=== PATIENT | female | born 1975 | race Caucasian/White ===

== ENCOUNTER 2017-03-18 07:44 | Inpatient (IN) | payer OTHER ==
[2017-03-15 13:09] LABS: Urine Bilirubin Negative (Negative); Urine Blood Negative /uL (Negative); Urine Color Yellow (Yellow); Urine Glucose Normal (Normal); Urine Ketone Negative (Negative); Urine Nitrite Negative (Negative); Urine Urobilinogen Normal (Negative)
[2017-03-15 13:11] LABS: Basophils # (auto) 0 uL; Basophils % (auto) 0.7 % (0.0-2.0); Eosinophils # (auto) 0.1 uL; Eosinophils % (auto) 1.9 % (0.0-7.0); Hematocrit 44.6 % (36.0-46.0); Hemoglobin 14.3 g/dL (12.2-16.2); Lymphocytes # (auto) 2.2 uL; Lymphocytes % (auto) 32.4 % (10.0-50.0); Mean Corpuscular Hemoglobin 29.6 pg (28.0-32.0); Mean Corpuscular Hgb Conc. 32.1 g/dL (32.0-36.0); Mean Corpuscular Volume 92.2 fL (80.0-100.0); Mean Platelet Volume 8.3 fL (6.9-10.8); Monocytes # (auto) 0.3 uL; Nucleated Red Blood Cells % 0.2 %; Platelet Count (auto) 382 10^3/uL (140-450); Red Cell Distribution Width 14.9 % (11.8-14.3); White Blood Cell 6.7 10^3/uL (4.4-10.8)
[2017-03-15 13:23] LABS: INR 0.93 (0.9-1.15); Partial Thromboplastin Time 25.5 sec (22.64-33.71); Prothrombin Time 10.1 sec (9.37-12.3)
[2017-03-15 13:27] LABS: Albumin 3.5 g/dL (3.4-5.0); BUN/Creatinine Ratio 10.3; Bilirubin, Total 0.3 mg/dL (0.2-1.0); Calcium 8.6 mg/dL (8.5-10.1); Potassium 4.2 mmol/L (3.5-5.1); Total Protein 8.1 g/dL (6.4-8.2)
[~2017-03-18] VITALS: Ht 163.8 cm; Wt 97.7 kg
[2017-03-18] MEDS ORDERED: ceFAZolin 1GM/50ML D5W 100 ML IV ONE (07:52)
[2017-03-18] MEDS ORDERED: ROCURONIUM 10MG/ML 10ML VIAL IV ONE (12:00)
[2017-03-18] MEDS ORDERED: fentaNYL CITRATE 100 MCG/2 ML VL ONE (12:10)
[2017-03-18] MEDS ORDERED: MIDAZOLAM HCL 1MG/1ML-2 ML VIAL ONE ×2 (12:10→12:36)
[2017-03-18] MEDS ORDERED: PROPOFOL 10 MG/ML 20 ML IV ONE (12:20)
[2017-03-18] MEDS ORDERED: HYDROmorphone HCL 2 MG/ML VL IV PRN ×2 (14:15→14:45)
[2017-03-18] MEDS ORDERED: KETOROLAC TROMETH 30 MG/ML 1ML VIAL IV PRN (14:15)
[2017-03-18] MEDS ORDERED: HYDROmorphone HCL 2 MG/ML VL ONE (14:44)
[2017-03-18] MEDS ORDERED: ePHEDrine SULFATE 50 MG/ML AMP IV PRN (14:45)
[2017-03-18] MEDS ORDERED: ONDANSETRON HCL 4 MG/2 ML VIAL IV ONE (14:45)
[2017-03-18] MEDS ORDERED: hydrALAZINE HCL 20 MG/ML VL IV PRN (14:45)
[2017-03-18] MEDS: HYDROmorphone HCL 2 MG/ML VL IV PRN ×5 (14:50→20:31)
[2017-03-18] MEDS ORDERED: KETOROLAC TROMETH 30 MG/ML 1ML VIAL ONE (14:54)
[2017-03-18 17:00] VITALS: BP 144/92
[2017-03-18 17:15] VITALS: BP 144/92
[2017-03-18] MEDS ORDERED: TRAZ50TA2 PO (17:32)
[2017-03-18] MEDS ORDERED: SERT25TA84 PO (17:32)
[2017-03-18] MEDS: KETOROLAC TROMETH 30 MG/ML 1ML VIAL IV SCH (18:00)
[2017-03-18] MEDS: ceFAZolin 1GM/50ML D5W 50 ML IV SCH ×2 (18:21→21:45)
[2017-03-18 20:00] VITALS: BP 130/78
[2017-03-18] MEDS: LACTATED RINGER'S 1,000 ML IV SCH ×2 (20:43→21:31)
[2017-03-19] MEDS: HYDROmorphone HCL 2 MG/ML VL IV PRN ×4 (00:43→23:13)
[2017-03-19] MEDS: ONDANSETRON HCL 4 MG/2 ML VIAL IV PRN (00:43)
[2017-03-19] MEDS: LACTATED RINGER'S 1,000 ML IV SCH (03:23)
[2017-03-19 05:00] VITALS: BP 148/90
[2017-03-19] MEDS: ceFAZolin 1GM/50ML D5W 50 ML IV SCH (06:12)
[2017-03-19] MEDS: KETOROLAC TROMETH 30 MG/ML 1ML VIAL IV SCH (06:13)
[2017-03-19 06:22] LABS: Basophils # (auto) 0 uL; Basophils % (auto) 0.2 % (0.0-2.0); Eosinophils # (auto) 0 uL; Hematocrit 37.5 % (36.0-46.0); Hemoglobin 12.4 g/dL (12.2-16.2); Lymphocytes # (auto) 1.8 uL; Lymphocytes % (auto) 12.3 % (10.0-50.0); Mean Corpuscular Hemoglobin 30.1 pg (28.0-32.0); Mean Corpuscular Hgb Conc. 33.2 g/dL (32.0-36.0); Mean Corpuscular Volume 90.6 fL (80.0-100.0); Monocytes # (auto) 0.8 uL; Monocytes % (auto) 5.5 % (0.0-12.0); Neutrophils # (auto) 12.1 uL; Platelet Count (auto) 326 10^3/uL (140-450); Red Cell Distribution Width 14.4 % (11.8-14.3); White Blood Cell 14.8 10^3/uL (4.4-10.8)
[2017-03-19 07:33] LABS: BUN/Creatinine Ratio 9.1; Calcium 8.5 mg/dL (8.5-10.1); Potassium 4.4 mmol/L (3.5-5.1)
[2017-03-19 07:36] LABS: Bilirubin, Total 0.3 mg/dL (0.2-1.0); Total Protein 6.7 g/dL (6.4-8.2)
[2017-03-19 09:00] VITALS: BP 157/85
[2017-03-19] MEDS ORDERED: LACTATED RINGER'S 1,000 ML IV SCH (09:45)
[2017-03-19 13:00] VITALS: BP 121/73
[2017-03-19] MEDS: traMADol HCL 50 MG TAB PO PRN (14:34)
[2017-03-19 17:00] VITALS: BP 147/78
[2017-03-19 20:00] VITALS: BP 132/70
[2017-03-19 22:00] VITALS: BP 132/70
[2017-03-20] MEDS: traMADol HCL 50 MG TAB PO PRN (04:09)
[2017-03-20] MEDS: ONDANSETRON HCL 4 MG/2 ML VIAL IV PRN ×2 (04:52→08:44)
[2017-03-20 05:00] VITALS: BP 133/73
[2017-03-20] MEDS ORDERED: ACETAMINOPHEN 500 MG TAB PO PRN (05:15)
[2017-03-20 08:29] VITALS: BP 126/75
[2017-03-20 09:00] VITALS: BP 126/75
[2017-03-20] MEDS: OXYCODONE W/ ACETAMINOPHEN 5/325MG TABLET PO PRN ×3 (10:39→21:34)
[2017-03-20 13:00] VITALS: BP 121/61
[2017-03-20 17:00] VITALS: BP 137/79
[2017-03-20 22:00] VITALS: BP 140/77
[2017-03-21] MEDS: OXYCODONE W/ ACETAMINOPHEN 5/325MG TABLET PO PRN ×2 (03:50→10:21)
[2017-03-21 05:00] VITALS: BP 111/76
[2017-03-21 08:26] VITALS: BP 106/71
[2017-03-21 10:18] VITALS: BP 106/71
[2017-03-21 12:09] VITALS: BP 113/71
== END 2017-03-21 11:47 | disposition home or self-care (01) | DRG 743 ==
LOC: SUR 07:44 → EAST 07:45
PROVIDERS: ADMIT Specialist; ATTEND Specialist
PROC: 0UTC0ZZ Resection of Cervix, Open Approach (ICD-10-PCS; 2017-03-18)
PROC: 0UT50ZZ Resection of Right Fallopian Tube, Open Approach (ICD-10-PCS; 2017-03-18)
PROC: 0UT00ZZ Resection of Right Ovary, Open Approach (ICD-10-PCS; 2017-03-18)
PROC: 0DNW0ZZ Release Peritoneum, Open Approach (ICD-10-PCS; 2017-03-18)
PROC: 0UT90ZZ Resection of Uterus, Open Approach (ICD-10-PCS; principal; 2017-03-18 12:08)
DX: N80.0 Endometriosis of uterus (principal); E66.9 Obesity, unspecified; F32.9 Major depressive disorder, single episode, unspecified; G89.29 Other chronic pain; N73.6 Female pelvic peritoneal adhesions (postinfective); N83.201 Unspecified ovarian cyst, right side; F41.9 Anxiety disorder, unspecified; Z90.49 Acquired absence of other specified parts of digestive tract; Z68.36 Body mass index [BMI] 36.0-36.9, adult
CPT/HCPCS: 36415; 80053; 81003; 84702; 85025; 85610; 85730; 86850; 86900; 86901; J0690; J1885; J2250; J2405; J2704

== ENCOUNTER 2017-03-28 20:24 | Emergency (ER) | payer OTHER ==
[~2017-03-28] VITALS: Ht 162.6 cm; Wt 91.6 kg
[~2017-03-28 20:24] MED LIST: SERT25TA84 PO; TRAZ50TA2 PO
[2017-03-28 20:48] VITALS: BP 113/81
[2017-03-28 20:58] LABS: Urine Bilirubin Negative (Negative); Urine Blood 2+ /uL (Negative); Urine Color Yellow (Yellow); Urine Glucose Normal (Normal); Urine Ketone Negative (Negative); Urine Nitrite Negative (Negative); Urine RBC 42 /hpf (0 - 4); Urine Squamous Epithelial Cell FEW /hpf (<5); Urine Urobilinogen Normal (Negative)
[2017-03-28 21:04] LABS: Eosinophils # (auto) 0.1 uL; Hemoglobin 12.3 g/dL (12.2-16.2); Mean Corpuscular Hemoglobin 29.6 pg (28.0-32.0); Mean Corpuscular Hgb Conc. 32.9 g/dL (32.0-36.0); Monocytes % (auto) 5.3 % (0.0-12.0); White Blood Cell 12.3 10^3/uL (4.4-10.8)
[2017-03-28 21:05] LABS: Basophils # (auto) 0.1 uL; Basophils % (auto) 0.7 % (0.0-2.0); Hematocrit 37.4 % (36.0-46.0); Lymphocytes # (auto) 2.1 uL; Lymphocytes % (auto) 16.8 % (10.0-50.0); Mean Corpuscular Volume 89.9 fL (80.0-100.0); Mean Platelet Volume 7.4 fL (6.9-10.8); Monocytes # (auto) 0.6 uL; Neutrophils # (auto) 9.4 uL; Neutrophils % (auto) 76.2 % (37.0-80.0); Platelet Count (auto) 449 10^3/uL (140-450)
[2017-03-28 21:27] LABS: Albumin 2.9 g/dL (3.4-5.0); BUN/Creatinine Ratio 5.6; Calcium 8.9 mg/dL (8.5-10.1); Potassium 4.1 mmol/L (3.5-5.1)
[2017-03-28 21:30] LABS: Bilirubin, Total 0.4 mg/dL (0.2-1.0); Total Protein 8.1 g/dL (6.4-8.2)
[2017-03-30] MEDS ORDERED: PERCOT PO (00:30)
== END 2017-03-29 00:28 | disposition left against medical advice (07) ==
LOC: ER 20:31
DX: M54.9 Dorsalgia, unspecified (principal); Z53.21 Procedure and treatment not carried out due to patient leaving prior to being seen by health care provider
CPT/HCPCS: 36415; 74176; 80053; 81001; 85025

== ENCOUNTER 2017-07-08 16:15 | Emergency (ER) | payer BC, OTHER ==
[~2017-07-08] VITALS: Ht 165.1 cm; Wt 91.2 kg
[~2017-07-08 16:15] MED LIST changes: +PERCOT PO
[2017-07-08 17:02] VITALS: BP 194/93
[2017-07-08] MEDS ORDERED: KETOROLAC TROMETH 60MG/2ML VIAL IM ONE (17:45)
== END 2017-07-08 18:02 | disposition home or self-care (01) ==
LOC: ER 16:17
DX: S16.1XXA Strain of muscle, fascia and tendon at neck level, initial encounter (principal); M54.12 Radiculopathy, cervical region; X58.XXXA Exposure to other specified factors, initial encounter; Y93.89 Activity, other specified; Y99.8 Other external cause status; Y92.89 Other specified places as the place of occurrence of the external cause
CPT/HCPCS: 73030; 96372; 99284; J1885

== ENCOUNTER 2018-08-20 13:04 | Emergency (ER) | payer BC ==
[~2018-08-20] VITALS: Ht 165.1 cm; Wt 89.8 kg
[2018-08-20 13:23] VITALS: BP 138/85
[2018-08-20] MEDS ORDERED: KETOROLAC TROMETH 60MG/2ML VIAL IM ONE (15:00)
== END 2018-08-20 15:09 | disposition home or self-care (01) ==
LOC: ER 13:06
DX: S82.892A Other fracture of left lower leg, initial encounter for closed fracture (principal); W01.0XXA Fall on same level from slipping, tripping and stumbling without subsequent striking against object, initial encounter; Y93.89 Activity, other specified; Y99.8 Other external cause status; Y92.89 Other specified places as the place of occurrence of the external cause
CPT/HCPCS: 29515; 73610; 96372; 99283; J1885

== ENCOUNTER 2019-05-12 10:34 | Emergency (ER) | payer BC ==
[~2019-05-12] VITALS: Ht 165.1 cm; Wt 95.3 kg
[2019-05-12 11:14] LABS: Basophils # (auto) 0.1 uL; Basophils % (auto) 0.9 % (0.0-2.0); Eosinophils # (auto) 0.1 uL; Eosinophils % (auto) 1.4 % (0.0-7.0); Hematocrit 42.5 % (36.0-46.0); Hemoglobin 14.6 g/dL (12.2-16.2); Lymphocytes # (auto) 2.4 uL; Lymphocytes % (auto) 23.1 % (10.0-50.0); Mean Corpuscular Hgb Conc. 34.4 g/dL (32.0-36.0); Mean Corpuscular Volume 90.1 fL (80.0-100.0); Monocytes # (auto) 0.4 uL; Neutrophils # (auto) 7.3 uL; Neutrophils % (auto) 70.6 % (37.0-80.0); Platelet Count (auto) 338 10^3/uL (140-450); Red Blood Cells 4.72 10^6/uL (4.0-5.20); White Blood Cell 10.4 10^3/uL (4.4-10.8)
[2019-05-12 11:30] LABS: Albumin 3.5 g/dL (3.4-5.0); Anion Gap 6 (5-15); Blood Urea Nitrogen 11 mg/dL (7-18); Calcium 8.6 mg/dL (8.5-10.1); Carbon Dioxide 26 mmol/L (21-32); Chloride 107 mmol/L (98-107); Glucose 99 mg/dL (74-106); Potassium 4.2 mmol/L (3.5-5.1); Sodium 139 mmol/L (136-145)
[2019-05-12 11:36] LABS: Alanine Aminotransferase 32 U/L (13-56); Alkaline Phosphatase 121 U/L (45-117); Aspartate Aminotransferase 22 U/L (15-37); BUN/Creatinine Ratio 13.1; Bilirubin, Total 0.4 mg/dL (0.2-1.0); GFR African American 94 mL/min; GFR Non-African American 78 mL/min
[2019-05-12 13:55] LABS: Urine Bacteria NONE SEEN /hpf (None Seen); Urine Blood Negative /uL (Negative); Urine Mucus FEW (None Seen); Urine Specific Gravity 1.024 (1.001-1.035); Urine WBC 2 /hpf (0 - 5)
[2019-05-12 14:11] LABS: Alcohol, Urine < 3.0 mg/dL (0-5); Amphetamine Screen, Urine NEGATIVE (NEGATIVE); Barbiturate Scree,Urine NEGATIVE (NEGATIVE); Benzodiazephine Screen, Urine POSITIVE (NEGATIVE); Cannabinoid Screen, Urine NEGATIVE (NEGATIVE); Cocaine Screen, Urine NEGATIVE (NEGATIVE); Phencyclidine Screen, Urine NEGATIVE (NEGATIVE)
[2019-05-12 14:19] LABS: Opiate Scree,Urine NEGATIVE (NEGATIVE)
[2019-05-12] MEDS ORDERED: MORPHINE SULF INJ 2 MG/ML SYRINGE 1ML IM ONE (16:45)
[2019-05-12] MEDS ORDERED: ONDANSETRON ODT 4 MG TAB PO ONE (16:45)
[2019-05-12 17:07] VITALS: BP 156/67
== END 2019-05-12 17:00 | disposition home or self-care (01) ==
LOC: ER 10:34
DX: N83.8 Other noninflammatory disorders of ovary, fallopian tube and broad ligament (principal); R07.89 Other chest pain; R06.02 Shortness of breath
CPT/HCPCS: 36415; 71046; 74176; 80053; 80307; 81001; 83690; 84484; 85025; 96372; 99284; J2270; Q0162

== ENCOUNTER 2019-06-27 09:05 | Emergency (ER) | payer BC ==
[~2019-06-27] VITALS: Ht 165.1 cm; Wt 95.3 kg
[2019-06-27 09:53] LABS: Basophils # (auto) 0 uL; Basophils % (auto) 0.3 % (0.0-2.0); Eosinophils # (auto) 0 uL; Eosinophils % (auto) 0.3 % (0.0-7.0); Hematocrit 47.2 % (36.0-46.0); Hemoglobin 15.8 g/dL (12.2-16.2); Lymphocytes # (auto) 2.1 uL; Lymphocytes % (auto) 23.3 % (10.0-50.0); Mean Corpuscular Hemoglobin 30.9 pg (28.0-32.0); Mean Corpuscular Hgb Conc. 33.6 g/dL (32.0-36.0); Mean Corpuscular Volume 91.9 fL (80.0-100.0); Monocytes # (auto) 0.4 uL; Monocytes % (auto) 4.9 % (0.0-12.0); Neutrophils # (auto) 6.5 uL; Neutrophils % (auto) 71.2 % (37.0-80.0); Nucleated Red Blood Cells % 0.1 %; Platelet Count (auto) 346 10^3/uL (140-450); Red Blood Cells 5.13 10^6/uL (4.0-5.20); Red Cell Distribution Width 14.4 % (11.8-14.3); White Blood Cell 9.1 10^3/uL (4.4-10.8)
[2019-06-27] MEDS ORDERED: SODIUM CHLORIDE 0.9% 1,000 ML IV ONE (09:55)
[2019-06-27] MEDS ORDERED: METOCLOPRAMIDE HCL 5MG/ml INJ 2ml VIAL IV ONE (10:00)
[2019-06-27] MEDS ORDERED: HYDROmorphone HCL 2 MG/ML VL IV ONE (10:00)
[2019-06-27 10:10] LABS: Albumin 3.7 g/dL (3.4-5.0); Calcium 9.4 mg/dL (8.5-10.1); Potassium 4.5 mmol/L (3.5-5.1)
[2019-06-27 10:18] LABS: BUN/Creatinine Ratio 11.4; Bilirubin, Total 0.5 mg/dL (0.2-1.0); Total Protein 8.8 g/dL (6.4-8.2)
[2019-06-27 12:06] LABS: Alcohol, Urine < 3.0 mg/dL (0-5); Amphetamine Screen, Urine NEGATIVE (NEGATIVE); Barbiturate Scree,Urine NEGATIVE (NEGATIVE); Benzodiazephine Screen, Urine NEGATIVE (NEGATIVE); Cannabinoid Screen, Urine NEGATIVE (NEGATIVE); Cocaine Screen, Urine NEGATIVE (NEGATIVE); Opiate Scree,Urine POSITIVE (NEGATIVE); Phencyclidine Screen, Urine NEGATIVE (NEGATIVE)
[2019-06-27 12:11] LABS: Urine Amorphous Crystal FEW /hpf (None Seen); Urine Bacteria NONE SEEN /hpf (None Seen); Urine Blood Negative /uL (Negative); Urine Mucus FEW (None Seen); Urine Specific Gravity 1.024 (1.001-1.035); Urine WBC 27 /hpf (0 - 5); Urine WBC Clumps PRESENT /hpf (None Seen)
[2019-06-27 13:00] VITALS: BP 138/78
== END 2019-06-27 13:22 | disposition home or self-care (01) ==
LOC: EDBD 09:05 → ER 09:05
DX: N39.0 Urinary tract infection, site not specified (principal); K76.0 Fatty (change of) liver, not elsewhere classified; Z90.49 Acquired absence of other specified parts of digestive tract; Z90.710 Acquired absence of both cervix and uterus; Z79.891 Long term (current) use of opiate analgesic; Z79.899 Other long term (current) drug therapy
CPT/HCPCS: 36415; 76705; 80053; 80307; 81001; 83690; 83735; 84702; 85025; 96361; 96374; 96375; 99284; J1170; J2765; J7030